=== PATIENT | female | born 1945 | race Asian ===

== ENCOUNTER → 2022-10-03 | Outpatient (CLI) | payer MEDICARE, OTHER ==
[~2022-10-03] MED LIST: ASPI-556 PO; ATOR20TA65 PO; DOCU50LI36 PO; FAMO-290 PO; LEVO25TA9 PO; LIDOP TD; POLY119P8 PO; TELM40 PO; THIA100T13 PO; VERA120C3 PO
== END | disposition home or self-care (01) ==
LOC: RADPV 12:56
PROVIDERS: ATTEND Internal Medicine
DX: M85.89 Other specified disorders of bone density and structure, multiple sites (principal); M81.0 Age-related osteoporosis without current pathological fracture
CPT/HCPCS: 77080